=== PATIENT | female | born 1955 | race Caucasian/White ===

== ENCOUNTER 2018-03-11 19:34 | Inpatient (IN) | payer MEDICARE, MEDICAID ==
[~2018-03-11] VITALS: Ht 157.5 cm; Wt 65.8 kg
--- NOTE | 2018-03-11 19:37 | NUR ---
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 PT STATED THAT SHE REC'D 3 SPRAYS OF NITRO IN THE FIELD WITH RELIEF AND 162MG OF ASPIRIN. PT STATED THAT HE PAIN IS INTERMITTENT AND 5/10. PT IS ON THE MONITOR AND CONTINUOUS PULSE OX. VSS. RESP EVEN AND UNLABORED.
--- NOTE | 2018-03-11 19:38 | NUR ---
DR PAULSON IS AT THE BEDSIDE.
--- NOTE | 2018-03-11 19:45 | NUR ---
20G IV STARTED IN RAC. BLOOD DRAWN. MARINE ENGINEER [facility] IS AT THE BEDSIDE.
[2018-03-11 19:52] LABS: BASOPHILS # (AUTO) 0.1 /CMM (0.0-0.2); BASOPHILS % (AUTO) 0.9 % (0.0-2.0); EOSINOPHILS % (AUTO) 1.3 % (0.0-6.0); HEMATOCRIT 44 % (33-45); HEMOGLOBIN 14.6 g/dL (11.5-14.8); LYMPHOCYTES # (AUTO) 1.9 /CMM (0.8-4.8); LYMPHOCYTES % (AUTO) 30.4 % (20.0-44.0); MEAN CORPUSCULAR HGB CONC 33 g/dl (31.0-36.0); MEAN CORPUSCULAR VOLUME 89 fL (82-100); MONOCYTES # (AUTO) 0.4 /CMM (0.1-1.30); MONOCYTES % (AUTO) 7.1 % (2.0-12.0); NEUTROPHILS # (AUTO) 3.7 /CMM (1.8-8.9); NEUTROPHILS % (AUTO) 60.3 % (43.0-81.0); PLATELET COUNT (AUTO) 231 /CMM (150-450); RED BLOOD CELL COUNT(AUTO) 4.93 MIL/uL (4.0-5.2); WHITE BLOOD COUNT (AUTO) 6.1 K/uL (4.3-11.0)
[2018-03-11 20:02] LABS: CALCIUM, SERUM 9.1 mg/dL (8.5-10.1); CARBON DIOXIDE 31 mmol/L (21-32); CHLORIDE 109 mmol/L (98-107); GLUCOSE 97 mg/dL (74-106); POTASSIUM 3.7 mmol/L (3.5-5.1); SODIUM SERUM 145 mmol/L (136-145); UREA NITROGEN, BLOOD 9 mg/dL (7-18)
[2018-03-11] MEDS ORDERED: ASPIRIN 325 MG TABLET PO ONE (20:30)
[2018-03-11] MEDS ORDERED: ASPIRIN 81 MG TAB.CHEW ONE (20:40)
--- NOTE | 2018-03-11 21:14 | NUR ---
CALLING REPORT TO TELE NURSE.
--- NOTE | 2018-03-11 21:45 | NUR ---
PT TRANSPORTED TO TELE VIA [facility] PER PROTOCOL.
[2018-03-11] MEDS ORDERED: TOPAMAX (21:47)
[2018-03-11] MEDS ORDERED: BUTORPHANOL (21:47)
[2018-03-11] MEDS ORDERED: WELLBUTRIN (21:47)
[2018-03-11] MEDS ORDERED: ADDERALL (21:47)
[2018-03-11] MEDS ORDERED: TRAZODONE (21:47)
--- NOTE | 2018-03-11 21:50 | NUR ---
VISUAL EDUCATORTREASURY DIRECTOR NOTES Received this 62 year-old Female from ER via gurney accompanied by 2 ER staff. Admitted to [id number] due to Chest Pain under the service of Dr. Gavino Woods. Admission routine done. Initial skin assessment refused by patient claiming she has intact skin. Offered patient to change clothing into hospital gown, patient preferred to keep on her own clothing. Kept on bed comfortable. On tele monitor with SR 83. On RA, no SOB/respiratory distress noted. With complaints of chest pain and headache. Awaiting for admission orders at this time, CN made aware. Offered snacks to patient and instructed patient keep on NPO after midnight in preparation for cardiac eval in AM, patient verbalized understanding. Patient's belonging inventory completed by RADIATION ONCOLOGIST. Kept bed low and locked. Call light within easy reach. Patient made aware for admitting MD's order pending. Provided pen and paper for patient to list her home medications. Will continue to monitor accordingly.
[2018-03-11] MEDS ORDERED: ATORVASTATIN 10 MG TABLET PO SCH (22:00)
[2018-03-11] MEDS ORDERED: ACETAMINOPHEN 325 MG TABLET PO PRN (22:00)
[2018-03-11] MEDS ORDERED: ZOLPIDEM TARTRATE 5 MG TABLET PO PRN (22:00)
[2018-03-11] MEDS ORDERED: MAGNESIUM HYDROXIDE 30 ML UDC PO PRN (22:00)
[2018-03-11] MEDS ORDERED: Z GUARD REMEDY 2 OZ OINT TP PRN (22:00)
[2018-03-11] MEDS ORDERED: ONDANSETRON HCL/PF 4 MG/2 ML VIAL IVP PRN (22:00)
[2018-03-11] MEDS ORDERED: OMEP20CA10 PO (22:26)
[2018-03-11] MEDS ORDERED: FLUO40CA8 PO (22:26)
[2018-03-11] MEDS ORDERED: SERT25TA PO (22:26)
[2018-03-11] MEDS ORDERED: imitrex INJ (22:26)
[2018-03-11] MEDS ORDERED: LINA290C PO (22:26)
[2018-03-11] MEDS ORDERED: eyedrops (22:26)
[2018-03-11] MEDS: HYDROCODONE/APAP 5/325MG 1 EACH TABLET PO PRN (22:30)
--- NOTE | 2018-03-11 22:40 | NUR ---
SOCIAL WORKER AIDE NOTES SEEN AND EXAMINE BY VERONICA LAMBERT. MED RECON DONE.
[2018-03-11 22:53] VITALS: BP 118/74
[2018-03-11] MEDS ORDERED: FLUOXETINE HCL 20 MG/5 ML UDC PO SCH (23:00)
[2018-03-11] MEDS ORDERED: SERTRALINE HCL 25 MG TABLET PO SCH (23:00)
[2018-03-11] MEDS: PANTOPRAZOLE 40 MG VIAL IV SCH (23:28)
[2018-03-11] MEDS ORDERED: FLUOXETINE HCL 20 MG CAPSULE ONE (23:32)
--- NOTE | 2018-03-12 | NUR ---
ORDER TRACER NOTES KEPT ON NPO PER PROTOCOL IN PREPARATION FOR CARDIAC EVAL IN AM.
[2018-03-12 00:23] VITALS: BP 107/73
[2018-03-12 04:21] VITALS: BP 99/63
[2018-03-12] MEDS: HYDROCODONE/APAP 5/325MG 1 EACH TABLET PO PRN (06:25)
--- NOTE | 2018-03-12 06:32 | NUR ---
INDUSTRIAL TWISTING MACHINE OPERATOR CLOSING NOTES Patient asleep on L side lying position on bed. With patent peripheral IV line RAC G#20, SL. On tele monitor - SR 65. All needs attended. Kept on NPO since midnight for cardio eval. Kept bed low and locked, side rails x2 up. Call light at bedside. With complaint of pain on head and chest. Medicated for pain, noted effective. Endorsed to the next shift.
[2018-03-12] MEDS ORDERED: OMEPRAZOLE 20 MG CAPSULE.DR PO SCH (07:30)
[2018-03-12 08:00] VITALS: BP 113/66
[2018-03-12] MEDS ORDERED: REGADENOSON 0.4 MG/5 ML DISP.SYRIN IVP ONE (08:00)
--- NOTE | 2018-03-12 08:05 | NUR ---
SENIOR NET ARCHITECT OPENING NOTE RECEIVED PATIENT IN BED. ALERT ORIENTED X4. ON ROOM AIR, TOLERATING WELL. IN NO APPARENT DISTRESS OR DISCOMFORT AT THIS TIME. RESPIRATIONS EVEN AND UNLABORED, DENIES SOB REPORTS 3/10 PAIN IN EPIGASTRIC AREA. MD AWARE. ON TELE MONITORING WITH SINUS RHYTHM AT THIS TIME. RIGHT AC 20G IVC SL, PATENT AND INTACT. PATIENT IS ABLE TO COMMUNICATE NEEDS. HAS BEEN NPO SINCE MIDNIGHT. ALL NEEDS ATTENDED, SAFETY MEASURES IN PLACE, BED IN LOW LOCKED POSITION, SIDE RAILS UP X2, CALL LIGHT WITHIN EASY REACH. WILL CONTINUE TO MONITOR.
[2018-03-12 08:43] LABS: BASOPHILS # (AUTO) 0.1 /CMM (0.0-0.2); BASOPHILS % (AUTO) 2.2 % (0.0-2.0); EOSINOPHILS % (AUTO) 3.1 % (0.0-6.0); HEMATOCRIT 41 % (33-45); HEMOGLOBIN 13.7 g/dL (11.5-14.8); LYMPHOCYTES % (AUTO) 27.2 % (20.0-44.0); MEAN CORPUSCULAR HGB CONC 33 g/dl (31.0-36.0); MEAN CORPUSCULAR VOLUME 88 fL (82-100); MONOCYTES # (AUTO) 0.4 /CMM (0.1-1.30); MONOCYTES % (AUTO) 9.6 % (2.0-12.0); NEUTROPHILS # (AUTO) 2.2 /CMM (1.8-8.9); NEUTROPHILS % (AUTO) 57.9 % (43.0-81.0); PLATELET COUNT (AUTO) 198 /CMM (150-450); RED BLOOD CELL COUNT(AUTO) 4.69 MIL/uL (4.0-5.2); WHITE BLOOD COUNT (AUTO) 3.7 K/uL (4.3-11.0)
[2018-03-12 09:00] VITALS: BP 113/66
[2018-03-12] MEDS ORDERED: ASPIRIN 81 MG TAB.CHEW PO SCH (09:00)
[2018-03-12] MEDS ORDERED: AMLODIPINE BESYLATE 5 MG TABLET PO SCH (09:00)
[2018-03-12 09:10] LABS: CALCIUM, SERUM 8.8 mg/dL (8.5-10.1); CREATININE 1.1 mg/dL (0.6-1.3); MAGNESIUM 1.9 mg/dL (1.8-2.4); PHOSPHORUS 4.1 mg/dL (2.5-4.9); POTASSIUM 4.2 mmol/L (3.5-5.1)
[2018-03-12 09:19] LABS: THYROID STIMULATING HORMONE 2.227 uIU/mL (0.358-3.74)
--- NOTE | 2018-03-12 11:07 | NUR ---
RECEIVED TELEPHONE ORDER FROM DR. GROVES FOR IMITREX 50MG PO 1 TABLET EVERY 12 HOURS FOR MIGRAINE HEADACHES. ORDER READ BACK AND VERIFIED. WILL CARRY OUT AND CONTINUE TO MONITOR.
[2018-03-12] MEDS ORDERED: SUMATRIPTAN SUCCINATE 25 MG TABLET PO SCH (11:30)
[2018-03-12] MEDS ORDERED: SUMATRIPTAN SUCCINATE 25 MG TABLET PO PRN (12:00)
[2018-03-12] MEDS ORDERED: KETOROLAC TROMETHAMINE INJ 30 MG/ML VIAL IV PRN (12:30)
[2018-03-12] MEDS: PANTOPRAZOLE 40 MG VIAL IV SCH (12:36)
--- NOTE | 2018-03-12 17:50 | NUR ---
MS LAMINATING MACHINE FEEDER NOTE RECEIVED ORDERS FROM DR. VIRK TO DISCHARGE PATIENT HOME. PATIENT IS STABLE, MEDICALLY CLEARED, VITAL SIGNS STABLE. ALERT ORIENTED X4. IN NO APPARENT DISTRESS OR DISCOMFORT AT THIS TIME. RESPIRATIONS EVEN AND UNLABORED. DENIES PAIN AND SOB. DISCHARGE PAPERS PREPARED VIA [employer], EDUCATION PROVIDED REGARDING DIAGNOSIS, DISEASE PROCESS AND MANAGEMENT, FOLLOW UP CARE. PATIENT VERBALIZED UNDERSTANDING OF TEACHINGS. VALUABLES CHECKED AND ACCOUNTED FOR. ALL DISCHARGE PAPERWORK SIGNED, COPIES PLACED IN THE CHART. VACCINATIONS REFUSED AT THIS TIME, PER PATIENT SHE WILL RECEIVE IT AT HER REGULAR DR. OFFICE IF SHE DECIDES TO GET IT. SKIN ASSESSMENT REFUSED, REPORTED HER SKIN HAS NO ISSUES. IV SITE REMOVED, TIP INTACT. ID BAND REMOVED. PATIENT WAS SENT HOME VIA [facility] AT 1750, ESCORTED TO THE CAR BY ANGELITO RODRIGUEZ.
[2018-03-12 20:33] LABS: OCCULT BLOOD STOOL NEGATIVE (NEGATIVE)
--- NOTE | 2018-03-13 12:31 | NUR ---
MADE 4 ATTEMPTS IN CALLING SINDI DIAZ BUT TO NO AVAIL.LEFT MESSAGE IN HER VOICEMAIL.
== END 2018-03-12 17:50 | disposition home or self-care (01) | DRG 313 ==
LOC: ER 19:52 → TELE 21:01 → MED 03-12 09:08
PROVIDERS: ADMIT Nurse Practitioner Acute Care; ATTEND Nurse Practitioner Acute Care
DX: R07.89 Other chest pain (principal); K21.9 Gastro-esophageal reflux disease without esophagitis; F32.9 Major depressive disorder, single episode, unspecified; G44.009 Cluster headache syndrome, unspecified, not intractable
CPT/HCPCS: 36415; 71045-TC; 80048-TC; 80061-TC; 82272-TC; 82728-TC; 83540-TC; 83735-TC; 84100-TC; 84439-TC; 84443-TC; 84484-TC; 85025-TC; 85652-TC; 85730-TC; 87081-TC; 93307-TC; A9502; C9113; G0378; J2785